=== PATIENT | male | born 1965 | race Caucasian/White ===

== ENCOUNTER 2018-09-27 06:50 | Day surgery (SDC) | payer OTHER ==
[2018-09-16 17:22] VITALS: BMI 49.5
[2018-09-27] MEDS ORDERED: ROCURONIUM BROMIDE 50 MG/5 ML VIAL ONE (08:30)
[2018-09-27] MEDS ORDERED: PROPOFOL 20 ML ONE (08:30)
[2018-09-27] MEDS ORDERED: SUCCINYLCHOLINE CHLORIDE 200 MG/10 ML VIAL ONE (08:30)
[2018-09-27] MEDS ORDERED: MIDAZOLAM HCL 2 MG/2 ML SINGLE DOSE VIAL ONE ×2 (08:30→09:47)
[2018-09-27] MEDS ORDERED: ceFAZolin SODIUM 1 GM VIAL ONE (09:52)
[2018-09-27] MEDS ORDERED: BUPIVACAINE HCL/EPINEPHRINE/PF 30 ML VIAL IJ ONE (09:53)
[2018-09-27] MEDS ORDERED: BUPIVACAINE 0.25% /EPI 1:200,000 10 ML VIAL INF ONE (10:05)
--- NOTE | 2018-09-27 10:55 | DS ---
Physical Examination Vital Signs: Vital Signs Temperature 97.8 F 09/27/18 07:15 Pulse Rate 66 09/27/18 07:15 Respiratory Rate 18 09/27/18 07:15 Blood Pressure 166/96 09/27/18 07:15 O2 Sat by Pulse Oximetry (%) 98 09/27/18 07:15 Discharge Summary Reason For Visit: PAINFUL HARDWARE RIGHT KNEE Condition: Good - Instructions Diet, Activity, Other Instructions: Keep the dressing dry and in place for 2-3 days! Change the dressing after your shower after that. The wound can can wet in the shower. Do not put creams or ointments on the wound. Expect drainage or oozing of blood. That is normal Take the antibiotic as prescribed. Use the pain medication only if absolutely necessary. Call for a return appointment in one week for a wound check Call me if you develop fevers > 101 or if you are concerned about the status of your wound. Disposition: HOME - Home Medications Comprehensive Discharge Medication List: Ambulatory Orders Amlodipine Besylate [Norvasc -] 10 mg PO HS 11/21/13 Aspirin [Aspirin EC] 81 mg PO DAILY 09/16/18 Atorvastatin Ca [Lipitor] 80 mg PO HS 09/16/18 Carvedilol 12.5 mg PO DAILY 09/16/18 Ezetimibe [Zetia] 10 mg PO HS 09/16/18 Levothyroxine [Synthroid -] 100 mcg PO DAILY 09/27/18
--- NOTE | 2018-09-27 10:55 | OP ---
Operative Note - Note: Operative Date: 09/27/18 Pre-Operative Diagnosis: Right knee infected burisits and infected hardware Operation: Excision infected pretibial bursa. Removal of hardware (broken screw and washer) Post-Operative Diagnosis: Same as Pre-op Surgeon: Arun Wang Anesthesiologist/STATION JAILER: Jose Carlos Wei Anesthesia: Local Specimens Removed: bursa, hardware Operative Report Dictated: Yes
[2018-09-30 10:07] VITALS: BP 144/85; PULSE 67; TEMP 97.8
--- NOTE | 2018-10-01 16:04 | PATH ---
Surgical Pathology Report Patient Name: ALLI THORPE [facility]. Rec. #: [id number] /Age/Gender: 1965 (Age: 53) / M Account: [id number] Location: Taken: 09/27/2018 Received: 09/27/2018 Reported: 10/01/2018 Physicians: Arun Wang M.D. Specimen(s) Received RIGHT KNEE HARDWARE Clinical History Painful hardware right knee Final Diagnosis HARDWARE, RIGHT KNEE, REMOVAL: HARDWARE, DESCRIBED (GROSS EXAMINATION ONLY). Electronically Signed Mirtha Bailon M.D. Gross Description Received fresh labeled "right knee hardware," is a 3.2 cm in length [place] metallic screw. Also received within the same container is a 1.3 cm in diameter [employer] metallic washer. No soft tissue is present. No sections are submitted, gross only. /09/27/201809/27/2018
== END 2018-09-27 12:05 | disposition home or self-care (01) ==
LOC: FASU 06:50
PROVIDERS: ATTEND Orthopaedic Surgery
PROC: 0MTN0ZZ Resection of Right Knee Bursa and Ligament, Open Approach (ICD-10-PCS; 2018-09-27)
PROC: 0MBN0ZZ Excision of Right Knee Bursa and Ligament, Open Approach (ICD-10-PCS; 2018-09-27)
PROC: 0SPC04Z Removal of Internal Fixation Device from Right Knee Joint, Open Approach (ICD-10-PCS; principal; 2018-09-27 08:30)
DX: M71.161 Other infective bursitis, right knee (principal); T84.116A Breakdown (mechanical) of internal fixation device of bone of right lower leg, initial encounter; Y79.1 Therapeutic (nonsurgical) and rehabilitative orthopedic devices associated with adverse incidents; M86.9 Osteomyelitis, unspecified; Y92.9 Unspecified place or not applicable
CPT/HCPCS: 87070; 87205; 88300-TC; 94760